=== PATIENT | male | born 1990 | race Caucasian/White ===

== ENCOUNTER → 2016-10-18 | Outpatient (REF) | payer BC ==
[2016-10-18 18:12] LABS: ALBUMIN 4.2 GM/DL (3.2-5.2); ALKALINE PHOSPHATASE 65 U/L (45-117); ALT/SGPT 45 U/L (12-78); ANION GAP 4 MEQ/L (8-16); AST/SGOT 18 U/L (15-37); BILIRUBIN,TOTAL 0.3 MG/DL (0.2-1.0); BLOOD UREA NITROGEN 16 MG/DL (7-18); CARBON DIOXIDE LEVEL 29 MEQ/L (21-32); CHLORIDE LEVEL 106 MEQ/L (98-107); CREATININE FOR GFR 0.91 MG/DL (0.70-1.30); FREE T4 1.04 NG/DL (0.76-1.46); GLOMERULAR FILTRATION RATE > 60.0 (>60); GLUCOSE, FASTING 107 MG/DL (70-105); POTASSIUM SERUM 4.5 MEQ/L (3.5-5.1); SODIUM LEVEL 139 MEQ/L (136-145); TOTAL PROTEIN 7.7 GM/DL (6.4-8.2)
[2016-10-18 20:39] LABS: BASO % 0.4 % (0.0-1.0); EOS # 0.1 K/mm3 (0.0-0.50); EOS % 1.2 % (0.0-3.0); LARGE UNSTAINED CELL # 0.2 K/mm3 (0.0-0.4); LARGE UNSTAINED CELL % 2.6 % (0.0-4.0); LYMPH # 1.7 K/mm3 (1.5-6.5); LYMPH % 22.5 % (24.0-44.0); MEAN CORPUSCULAR HGB CONC 32.9 g/dl (32.0-36.5); MEAN CORPUSCULAR VOLUME 91.2 fl (80.0-96.0); MONO # 0.5 K/mm3 (0.0-0.8); MONO % 7.3 % (0.0-5.0); NEUTROPHILS # 4.4 K/mm3 (1.8-7.7); NEUTROPHILS % 65.9 % (36.0-66.0); PLATELET COUNT, AUTOMATED 298 k/mm3 (150-450); WHITE BLOOD COUNT 6.6 K/mm3 (4.0-10.0)
== END ==
LOC: M LAB REF 16:11
PROVIDERS: ATTEND Physician Assistant
DX: F32.1 Major depressive disorder, single episode, moderate (principal)

== ENCOUNTER 2017-12-02 12:38 | Inpatient (IN) | payer OTHER, SELFPAY ==
[2017-12-02 14:11] LABS: HEMATOCRIT 48.4 % (42.0-52.0); HEMOGLOBIN 16.8 g/dl (13.5-17.5); MEAN CORPUSCULAR HEMOGLOBIN 31.2 pg (27.0-33.0); MEAN CORPUSCULAR HGB CONC 34.7 g/dl (32.0-36.5); MEAN CORPUSCULAR VOLUME 89.8 fl (80.0-96.0); PLATELET COUNT, AUTOMATED 313 10^3/uL (150-450); RED BLOOD COUNT 5.39 10^6/uL (4.30-6.10); RED CELL DISTRIBUTION WIDTH 12.6 % (11.5-14.5); WHITE BLOOD COUNT 7.1 10^3/uL (4.0-10.0)
[2017-12-02 14:32] LABS: ALBUMIN 4.1 GM/DL (3.2-5.2); ALBUMIN/GLOBULIN RATIO 1.03 (1.00-1.93); ALKALINE PHOSPHATASE 82 U/L (45-117); ALT/SGPT 44 U/L (12-78); ANION GAP 9 MEQ/L (8-16); AST/SGOT 26 U/L (7-37); BILIRUBIN,DIRECT < 0.1 MG/DL (0.0-0.2); BILIRUBIN,TOTAL 0.2 MG/DL (0.2-1.0); BLOOD UREA NITROGEN 14 MG/DL (7-18); CALCIUM LEVEL 9.2 MG/DL (8.5-10.1); CARBON DIOXIDE LEVEL 25 MEQ/L (21-32); CHLORIDE LEVEL 108 MEQ/L (98-107); CREATININE FOR GFR 1.04 MG/DL (0.70-1.30); ETHYL ALCOHOL (ETHANOL) 0.266 % (0.000-0.010); GLOMERULAR FILTRATION RATE > 60.0 (>60); GLUCOSE, FASTING 104 MG/DL (70-100); POTASSIUM SERUM 4.2 MEQ/L (3.5-5.1); SALICYLATE LEVEL 2.9 MG/DL (5.0-30.0); SODIUM LEVEL 142 MEQ/L (136-145); TOTAL PROTEIN 8.1 GM/DL (6.4-8.2)
[2017-12-02 14:43] LABS: ACETAMINOPHEN LEVEL < 2.0 UG/ML (10.0-30.0)
[2017-12-02 15:11] LABS: AMPHETAMINES LEVEL URINE NEGATIVE (NEGATIVE); BARBITURATES URINE NEGATIVE (NEGATIVE); BENZODIAZEPINES URINE NEGATIVE (NEGATIVE); CANNABINOIDS URINE NEGATIVE (NEGATIVE); COCAINE METABOLITE URINE NEGATIVE (NEGATIVE); METHADONE URINE NEGATIVE (NEGATIVE); OPIATES URINE NEGATIVE (NEGATIVE); PHENCYCLIDINE URINE NEGATIVE (NEGATIVE)
[2017-12-02] MEDS ORDERED: ACETAMINOPHEN TAB 650MG DOSE (2X325MG) PO (22:45)
[2017-12-02] MEDS ORDERED: MOM 30ML SUSPENSION UDC PO (22:45)
[2017-12-02] MEDS ORDERED: LORazepam 2 MG TAB PO (22:45)
[2017-12-02] MEDS ORDERED: MAALOX 30 ML SUSP *UDC PO (22:45)
[2017-12-03] MEDS: THIAMINE 100 MG TAB PO ×3 (01:23→21:10)
[2017-12-03] MEDS: FOLIC ACID 1 MG TAB PO (09:05)
[2017-12-03] MEDS: MULTIVITAMINS/MINERALS THERAP 1 TAB PO (09:05)
[2017-12-03] MEDS: SERTRALINE HCL 50 MG TAB PO ×2 (11:26)
[2017-12-03] MEDS: busPIRone 10 MG TAB PO ×2 (11:26→21:10)
[2017-12-03] MEDS: hydrOXYzine 50 MG TAB PO (11:27)
[2017-12-03] MEDS: MUPIROCIN 2% OINT 22 GM TUBE TOP (11:27)
[2017-12-03] MEDS ORDERED: SERTRALINE HCL 50 MG TAB PO (11:45)
[2017-12-03] MEDS ORDERED: busPIRone 5 MG TAB PO (11:45)
[2017-12-03] MEDS: traZODone 50 MG TAB PO (21:11)
[2017-12-04] MEDS: THIAMINE 100 MG TAB PO ×2 (08:47→21:33)
[2017-12-04] MEDS: FOLIC ACID 1 MG TAB PO (08:47)
[2017-12-04] MEDS: SERTRALINE HCL 50 MG TAB PO (08:47)
[2017-12-04] MEDS: busPIRone 10 MG TAB PO ×2 (08:47→21:33)
[2017-12-04] MEDS: MULTIVITAMINS/MINERALS THERAP 1 TAB PO (08:47)
[2017-12-04] MEDS: hydrOXYzine 50 MG TAB PO (18:11)
[2017-12-04] MEDS: traZODone 50 MG TAB PO (21:42)
[2017-12-05] MEDS: SERTRALINE HCL 50 MG TAB PO (09:13)
[2017-12-05] MEDS: THIAMINE 100 MG TAB PO (09:13)
[2017-12-05] MEDS: busPIRone 10 MG TAB PO (09:13)
[2017-12-05] MEDS: FOLIC ACID 1 MG TAB PO (09:13)
[2017-12-05] MEDS: MULTIVITAMINS/MINERALS THERAP 1 TAB PO (09:13)
== END 2017-12-05 12:20 | disposition home or self-care (01) | DRG 751 ==
LOC: M PSY 12-03 01:01 → M ED 12:38 → M ED INP 22:36
DX: F33.2 Major depressive disorder, recurrent severe without psychotic features (principal); F10.239 Alcohol dependence with withdrawal, unspecified; Z81.1 Family history of alcohol abuse and dependence; Z91.410 Personal history of adult physical and sexual abuse; Z79.899 Other long term (current) drug therapy; Z88.0 Allergy status to penicillin; F17.210 Nicotine dependence, cigarettes, uncomplicated; T23.361D Burn of third degree of back of right hand, subsequent encounter; X77 Intentional self-harm by steam, hot vapors and hot objects; Y92.9 Unspecified place or not applicable

== ENCOUNTER 2018-04-01 17:20 | Inpatient (IN) | payer OTHER ==
[2018-04-01 18:00] LABS: HEMATOCRIT 45.8 % (42.0-52.0); HEMOGLOBIN 15.4 g/dl (13.5-17.5); MEAN CORPUSCULAR HEMOGLOBIN 29.3 pg (27.0-33.0); MEAN CORPUSCULAR HGB CONC 33.6 g/dl (32.0-36.5); MEAN CORPUSCULAR VOLUME 87.1 fl (80.0-96.0); PLATELET COUNT, AUTOMATED 280 10^3/uL (150-450); RED BLOOD COUNT 5.26 10^6/uL (4.30-6.10); RED CELL DISTRIBUTION WIDTH 15.2 % (11.5-14.5); WHITE BLOOD COUNT 9.7 10^3/uL (4.0-10.0)
[2018-04-01 18:25] LABS: AMPHETAMINES LEVEL URINE NEGATIVE (NEGATIVE); BARBITURATES URINE NEGATIVE (NEGATIVE); BENZODIAZEPINES URINE NEGATIVE (NEGATIVE); CANNABINOIDS URINE NEGATIVE (NEGATIVE); COCAINE METABOLITE URINE NEGATIVE (NEGATIVE); METHADONE URINE NEGATIVE (NEGATIVE); OPIATES URINE NEGATIVE (NEGATIVE); PHENCYCLIDINE URINE NEGATIVE (NEGATIVE)
[2018-04-01 18:58] LABS: ACETAMINOPHEN LEVEL < 2.0 UG/ML (10.0-30.0); ALBUMIN 4.1 GM/DL (3.2-5.2); ALBUMIN/GLOBULIN RATIO 1.05 (1.00-1.93); ALKALINE PHOSPHATASE 83 U/L (45-117); ALT/SGPT 40 U/L (12-78); ANION GAP 12 MEQ/L (8-16); AST/SGOT 20 U/L (7-37); BILIRUBIN,DIRECT 0.1 MG/DL (0.0-0.2); BILIRUBIN,TOTAL 0.3 MG/DL (0.2-1.0); BLOOD UREA NITROGEN 9 MG/DL (7-18); CARBON DIOXIDE LEVEL 20 MEQ/L (21-32); CHLORIDE LEVEL 110 MEQ/L (98-107); CREATININE FOR GFR 0.79 MG/DL (0.70-1.30); ETHYL ALCOHOL (ETHANOL) 0.198 % (0.000-0.010); GLOMERULAR FILTRATION RATE > 60.0 (>60); GLUCOSE, FASTING 102 MG/DL (70-100); POTASSIUM SERUM 3.9 MEQ/L (3.5-5.1); SALICYLATE LEVEL 2.6 MG/DL (5.0-30.0); SODIUM LEVEL 142 MEQ/L (136-145)
[2018-04-01] MEDS: THIAMINE 100 MG TAB PO (21:00)
[2018-04-01] MEDS ORDERED: LORazepam 2 MG TAB PO (23:30)
[2018-04-01] MEDS ORDERED: MOM 30ML SUSPENSION UDC PO (23:30)
[2018-04-01] MEDS ORDERED: MAALOX 30 ML SUSP *UDC PO (23:30)
[2018-04-01] MEDS ORDERED: ACETAMINOPHEN TAB 650MG DOSE (2X325MG) PO (23:30)
[2018-04-02] MEDS: INFLUENZA QUADRIVALENT PF VACCINE 0.5ML SYRINGE (90686) IM (09:00)
[2018-04-02] MEDS ORDERED: SERTRALINE 100 MG TAB PO (09:00)
[2018-04-02] MEDS: THIAMINE 100 MG TAB PO ×2 (09:38→21:16)
[2018-04-02] MEDS: MULTIVITAMINS/MINERALS THERAP 1 TAB PO (09:38)
[2018-04-02] MEDS: FOLIC ACID 1 MG TAB PO (09:39)
[2018-04-02] MEDS ORDERED: hydrOXYzine 50 MG TAB PO (11:45)
[2018-04-02] MEDS: busPIRone 10 MG TAB PO ×2 (12:13→21:16)
[2018-04-02] MEDS: SERTRALINE 100 MG TAB PO (12:28)
[2018-04-02] MEDS: NICOTINE 21MG/24HR 1 EA TRANSDERMAL TD (17:30)
[2018-04-02] MEDS: traZODone 50 MG TAB PO (21:16)
[2018-04-02] MEDS: NALTREXONE 50 MG TAB PO (21:16)
[2018-04-03] MEDS: FOLIC ACID 1 MG TAB PO (08:29)
[2018-04-03] MEDS: MULTIVITAMINS/MINERALS THERAP 1 TAB PO (08:29)
[2018-04-03] MEDS: busPIRone 10 MG TAB PO ×2 (08:29→20:34)
[2018-04-03] MEDS: SERTRALINE 100 MG TAB PO (08:29)
[2018-04-03] MEDS: THIAMINE 100 MG TAB PO ×2 (08:30→20:34)
[2018-04-03] MEDS: NICOTINE 21MG/24HR 1 EA TRANSDERMAL TD (08:31)
[2018-04-03] MEDS: traZODone 50 MG TAB PO (20:34)
[2018-04-03] MEDS: NALTREXONE 50 MG TAB PO (20:34)
[2018-04-04] MEDS: NICOTINE 21MG/24HR 1 EA TRANSDERMAL TD (08:26)
[2018-04-04] MEDS: FOLIC ACID 1 MG TAB PO (08:27)
[2018-04-04] MEDS: THIAMINE 100 MG TAB PO (08:27)
[2018-04-04] MEDS: SERTRALINE 100 MG TAB PO (08:28)
[2018-04-04] MEDS: busPIRone 10 MG TAB PO (08:28)
[2018-04-04] MEDS: MULTIVITAMINS/MINERALS THERAP 1 TAB PO (08:28)
== END 2018-04-04 10:30 | disposition home or self-care (01) | DRG 751 ==
LOC: M PSY 04-02 00:12 → M ED 17:20 → M ED INP 23:19 → M PSY 23:52
DX: F33.1 Major depressive disorder, recurrent, moderate (principal); F10.239 Alcohol dependence with withdrawal, unspecified; F12.10 Cannabis abuse, uncomplicated; Z88.0 Allergy status to penicillin; Z79.899 Other long term (current) drug therapy; Z91.5 Personal history of self-harm; Z81.1 Family history of alcohol abuse and dependence; J45.909 Unspecified asthma, uncomplicated; F17.210 Nicotine dependence, cigarettes, uncomplicated; G47.00 Insomnia, unspecified